=== PATIENT | male | born 1960 | race African-American/Black ===

== ENCOUNTER 2022-07-14 13:37 | Emergency (ER) | payer OTHER ==
[2022-07-14 14:06] VITALS: BP 125/79
[2022-07-14 14:31] VITALS: BP 130/76
[2022-07-14 15:06] LABS: URINE BILIRUBIN - DIPSTICK NEGATIVE (NEGATIVE); URINE BLOOD DIPSTICK MODERATE (NEGATIVE); URINE COLOR YELLOW; URINE GLUCOSE - DIPSTICK NEGATIVE (NEGATIVE); URINE KETONE NEGATIVE (NEGATIVE); URINE LEUK ESTERASE NEGATIVE (NEGATIVE); URINE NITRITE - DIPSTICK NEGATIVE (Negative); URINE PROTEIN - DIPSTICK NEGATIVE (NEG-TRACE); URINE UROBILINOGEN - DIPSTICK 0.2 E.U./dL (0.2)
[2022-07-14] MEDS ORDERED: KEFLEX500 MG PO (15:52)
[2022-07-14 15:56] VITALS: BP 130/76
== END 2022-07-14 16:10 | disposition home or self-care (01) | DRG 696 ==
LOC: ED 13:37
PROVIDERS: Family Medicine
DX: R31.9 Hematuria, unspecified (principal); I10 Essential (primary) hypertension; E11.9 Type 2 diabetes mellitus without complications; Z79.4 Long term (current) use of insulin